=== PATIENT | female | born 1980 | race Caucasian/White ===

== ENCOUNTER 2019-07-17 01:29 | Emergency (ER) | payer MEDICAID ==
[~2019-07-17] VITALS: Ht 162.6 cm; Wt 48.5 kg
[~2019-07-17 01:29] MED LIST: ATIVAN0.5 MG PO; BACTRIM DS TAB1 EACH PO; BOTOX100 UNIT IM; CELEXA 20 MG TA20 M1; CEPHALEXIN 500500 M2 PO; DOXYCYCLINE 10100 M1 PO; HERCEPTIN; HYDROCODON-ACE1 EAC8 PO; KEFLEX500 MG PO; LEXAPRO20 MG PO; NEURONTIN600 MG PO; NOLVADEX20 MG; NORCO 5-325 TA1 EACH PO; PERCOCET PO; SAVELLA100 MG PO; TRAMADOL 50 MG50 MG; VICODIN 5-5001 EACH PO; ZOFRAN ODT4 MG PO; [UNRECOGNIZED DRUG - OTHER] IJ
[2019-07-17] MEDS ORDERED: CYMBALTA60 MG PO (01:46)
[2019-07-17] MEDS ORDERED: LYRICA150 MG PO (01:46)
[2019-07-17 02:43] VITALS: BP 98/58
== END 2019-07-17 02:43 | disposition home or self-care (01) ==
LOC: M.ERS 01:29
DX: G62.9 Polyneuropathy, unspecified (principal); Z85.3 Personal history of malignant neoplasm of breast; Z90.13 Acquired absence of bilateral breasts and nipples; Z88.5 Allergy status to narcotic agent; Z88.6 Allergy status to analgesic agent